=== PATIENT | male | born 1990 | race Hispanic/Latino ===

== ENCOUNTER 2020-02-01 15:16 | Inpatient (IN) | payer BC, OTHER ==
[~2020-02-01] VITALS: Ht 180.3 cm; Wt 81.5 kg
[2020-02-01] MEDS ORDERED: ALBUTEROL INHALER 90MCG/INH IH ONE (15:45)
[2020-02-01] MEDS ORDERED: DEXAMETHASONE SOD PHOSPHATE 10MG/ML 1ML VIAL ONE (15:46)
[2020-02-01] MEDS ORDERED: CEFTRIAXONE SODIUM 1 GM ONE (15:46)
[2020-02-01] MEDS ORDERED: AZITHROMYCIN 250 MG TABLET PO ONE (15:46)
[2020-02-01] MEDS ORDERED: ACETAMINOPHEN-CODEINE 300/30MG TAB ONE (15:47)
[2020-02-01] MEDS ORDERED: SODIUM CHLORIDE 0.9% 100 ML IV ONE (15:47)
[2020-02-01 15:51] LABS: LYMPHOCYTES % (AUTO) 12.9 % (21.0-51.0); MEAN CORPUSCULAR HEMOGLOBIN 31.5 pg (27.0-33.0); MEAN CORPUSCULAR VOLUME 90.1 fL (79-99); NEUTROPHILS % (AUTO) 77.7 % (40.0-77.0); PLATELET COUNT (AUTO) 146 K/uL (130-400); RED BLOOD CELL COUNT(AUTO) 4.44 MIL/uL (4.50-6.20); WHITE BLOOD COUNT (AUTO) 5.7 K/uL (4.8-10.8)
[2020-02-01 15:56] LABS: ABG HCO3 25.5 mmol/L (21.0-28.0); ABG OXYGEN SATURATION 96.1 % (95.0-99.0); ABG PCO2 37 mmHg (35-48)
[2020-02-01 16:06] LABS: CREATININE 1.4 mg/dL (0.5-1.5); INR 0.99 (0.85-1.15); PARTIAL THROMBOPLASTIN TIME 31.5 SEC (26.3-35.5); POTASSIUM 3.8 mmol/L (3.5-5.1); PROTHROMBIN TIME 10.7 SEC (9.6-11.6)
[2020-02-01] MEDS ORDERED: LORAZEPAM 2 MG/ML 1 ML VIAL ONE (16:09)
[2020-02-01 16:10] LABS: ALBUMIN 3.5 g/dL (3.5-5.0); BILIRUBIN,TOTAL 0.9 mg/dL (0.2-1.0); TOTAL PROTEIN, SERUM 7.3 g/dL (6.0-8.3)
[2020-02-01] MEDS ORDERED: DOXYCYCLINE 100MG+NS 250ML IV SCH (16:45)
[2020-02-01] MEDS ORDERED: ONDANSETRON HCL 4 MG/2 ML VIAL IV PRN (16:45)
[2020-02-01] MEDS: DEXAMETHASONE SOD PHOSPHATE 4 MG/ML 1ML VIAL IVP SCH (16:45)
[2020-02-01] MEDS ORDERED: MAG HYDROX/AL HYDROX/SIMETH ES 30 ML SUSP UDCUP PO PRN (16:45)
[2020-02-01] MEDS ORDERED: ACETAMINOPHEN 325 MG TAB PO PRN ×2 (16:45)
[2020-02-01] MEDS ORDERED: ERGOCALCIFEROL (VITAMIN D2) 50,000 UNIT CAPSULE PO ONE (16:45)
[2020-02-01 16:46] LABS: RAPID GROUP A STREP NEGATIVE (NEGATIVE)
[2020-02-01] MEDS ORDERED: DOXYCYCLINE 100MG+NS 250ML 250 ML IV ONE (17:55)
[2020-02-01] MEDS ORDERED: ERGOCALCIFEROL (VITAMIN D2) 50,000 UNIT CAPSULE ONE (17:55)
[2020-02-01] MEDS ORDERED: PHARMACY COMMUNICATION MISC SCH (18:30)
[2020-02-01] MEDS ORDERED: FAMOTIDINE 20MG TAB 20 MG TAB ONE (20:31)
[2020-02-01] MEDS ORDERED: ASPIRIN 325 MG TABLET ONE (20:31)
[2020-02-01] MEDS ORDERED: ACETYLCYSTEINE 600 MG CAPSULE ONE (20:31)
[2020-02-01] MEDS ORDERED: BENZONATATE 100 MG CAPSULE PO ONE (20:31)
[2020-02-01] MEDS: BENZONATATE 100 MG CAPSULE PO SCH (21:00)
[2020-02-01] MEDS: DOXYCYCLINE 100MG+NS 250ML 250 ML IV SCH (21:00)
[2020-02-01] MEDS: ACETYLCYSTEINE 600 MG CAPSULE PO SCH (21:00)
[2020-02-01] MEDS: FAMOTIDINE 20MG TAB 20 MG TAB PO SCH (21:00)
[2020-02-01] MEDS ORDERED: SODIUM CHLORIDE 0.9% 250 ML IV ONE (23:45)
[2020-02-02] MEDS ORDERED: BENZONATATE 100 MG CAPSULE PO ONE ×4 (03:43→22:02)
[2020-02-02] MEDS ORDERED: CEFTRIAXONE SODIUM 1 GM ONE ×2 (03:43→16:22)
[2020-02-02] MEDS ORDERED: SODIUM CHLORIDE 0.9% 100 ML IV ONE (03:44)
[2020-02-02 04:18] LABS: HEMATOCRIT 39.6 % (42-54); LYMPHOCYTES % (AUTO) 15.5 % (21.0-51.0); MEAN CORPUSCULAR HEMOGLOBIN 31.9 pg (27.0-33.0); MEAN CORPUSCULAR HGB CONC 34.8 g/dL (32.0-36.0); MEAN CORPUSCULAR VOLUME 91.7 fL (79-99); MONOCYTES % (AUTO) 7.9 % (3.0-13.0); NEUTROPHILS % (AUTO) 76.3 % (40.0-77.0); PLATELET COUNT (AUTO) 161 K/uL (130-400); RED BLOOD CELL COUNT(AUTO) 4.32 MIL/uL (4.50-6.20); RED CELL DISTRIBUTION WIDTH 11.3 % (11.0-15.5); WHITE BLOOD COUNT (AUTO) 3.8 K/uL (4.8-10.8)
[2020-02-02 04:43] LABS: ALBUMIN 3.4 g/dL (3.5-5.0); BILIRUBIN,TOTAL 0.7 mg/dL (0.2-1.0); CREATININE 1.3 mg/dL (0.5-1.5); CRP QUANTITATIVE 118.3 mg/L (0.00-9.0); POTASSIUM 4.6 mmol/L (3.5-5.1); TOTAL PROTEIN, SERUM 8.3 g/dL (6.0-8.3)
[2020-02-02] MEDS ORDERED: DOXYCYCLINE 100MG+NS 250ML 250 ML IV ONE ×3 (06:44→22:02)
[2020-02-02] MEDS ORDERED: ASCORBIC ACID 500 MG TAB ONE (08:52)
[2020-02-02] MEDS ORDERED: ACETYLCYSTEINE 600 MG CAPSULE ONE ×2 (08:52→22:01)
[2020-02-02] MEDS ORDERED: FAMOTIDINE 20MG TAB 20 MG TAB ONE ×2 (08:52→22:01)
[2020-02-02] MEDS ORDERED: ZINC SULFATE 220 CAPSULE ONE (08:53)
[2020-02-02] MEDS ORDERED: ENOXAPARIN SODIUM 40 MG/0.4 ML SYRINGE SQ ONE (08:53)
[2020-02-02] MEDS ORDERED: LOSARTAN 50 MG TABLET ONE (08:54)
[2020-02-02] MEDS: BENZONATATE 100 MG CAPSULE PO SCH ×3 (09:00→21:00)
[2020-02-02] MEDS: DOXYCYCLINE 100MG+NS 250ML 250 ML IV SCH ×2 (09:00→21:00)
[2020-02-02] MEDS: FAMOTIDINE 20MG TAB 20 MG TAB PO SCH ×2 (09:00→21:00)
[2020-02-02] MEDS: ZINC SULFATE 220 CAPSULE PO SCH (09:00)
[2020-02-02] MEDS: LOSARTAN 50 MG TABLET PO SCH (09:00)
[2020-02-02] MEDS: ASCORBIC ACID 500 MG TAB PO SCH (09:00)
[2020-02-02] MEDS: ACETYLCYSTEINE 600 MG CAPSULE PO SCH ×2 (09:00→21:00)
[2020-02-02] MEDS: ENOXAPARIN SODIUM 40 MG/0.4 ML SYRINGE SQ SCH (09:00)
[2020-02-02] MEDS ORDERED: REMDESIVIR (EUA) 520 200 MG in SODIUM CHLORIDE 0.9% 250 ML IV ONE (16:00)
[2020-02-02] MEDS ORDERED: COMPOUND IV REFRIGERATED 1 EACH IVSOLN MISC PRN (16:00)
[2020-02-02] MEDS ORDERED: DEXAMETHASONE SOD PHOSPHATE 10MG/ML 1ML VIAL ONE (16:22)
[2020-02-02] MEDS: DEXAMETHASONE SOD PHOSPHATE 4 MG/ML 1ML VIAL IVP SCH (16:45)
[2020-02-02 17:18] LABS: APPEARANCE,URINE Clear (CLEAR); BILIRUBIN,URINE Negative (NEGATIVE); COLOR,URINE Yellow (YELLOW); GLUCOSE, URINE (UA) Negative (NEGATIVE); KETONES,URINE Negative (NEGATIVE); LEUKOCYTE ESTERASE ,URINE Negative (NEGATIVE); NITRATE,URINE Negative (NEGATIVE); OCCULT BLOOD,URINE Negative (NEGATIVE); PROTEIN,URINE Trace mg/dL (NEGATIVE)
[2020-02-02 17:39] LABS: BACTERIA,URINE None Seen /HPF (None Seen); MUCUS,URINE Few LPF (None Seen); RBC,URINE 0-1 /HPF (0-1); SQUAMOUS EPITHELIAL CELL,UR 0-2 /HPF (0-2); WBC,URINE 0-1 /HPF (0-1)
[2020-02-02] MEDS ORDERED: IOHEXOL 350 MG/ML 100ML INFUS..BTL IV ONE (18:40)
[2020-02-03 03:00] VITALS: BP 124/71
[2020-02-03 04:38] LABS: BASOPHILS % (AUTO) 0.1 % (0.0-5.0); HEMATOCRIT 38.4 % (42-54); LYMPHOCYTES % (AUTO) 5.7 % (21.0-51.0); MEAN CORPUSCULAR HEMOGLOBIN 31.4 pg (27.0-33.0); MEAN CORPUSCULAR HGB CONC 34.6 g/dL (32.0-36.0); MEAN CORPUSCULAR VOLUME 90.8 fL (79-99); MONOCYTES % (AUTO) 5.8 % (3.0-13.0); NEUTROPHILS % (AUTO) 87.9 % (40.0-77.0); PLATELET COUNT (AUTO) 198 K/uL (130-400); RED BLOOD CELL COUNT(AUTO) 4.23 MIL/uL (4.50-6.20); RED CELL DISTRIBUTION WIDTH 11.2 % (11.0-15.5); WHITE BLOOD COUNT (AUTO) 10.5 K/uL (4.8-10.8)
[2020-02-03 04:54] LABS: ALBUMIN 2.9 g/dL (3.5-5.0); BILIRUBIN,TOTAL 0.4 mg/dL (0.2-1.0); CREATININE 1.1 mg/dL (0.5-1.5); CRP QUANTITATIVE 61.7 mg/L (0.00-9.0); POTASSIUM 4.4 mmol/L (3.5-5.1); TOTAL PROTEIN, SERUM 7.2 g/dL (6.0-8.3)
[2020-02-03] MEDS: CEFTRIAXONE SODIUM 1 GM IVP SCH ×2 (05:59→14:45)
[2020-02-03] MEDS: PHARMACY COMMUNICATION MISC SCH (06:00)
[2020-02-03] MEDS: FAMOTIDINE 20MG TAB 20 MG TAB PO SCH ×2 (07:44→21:00)
[2020-02-03] MEDS: ACETYLCYSTEINE 600 MG CAPSULE PO SCH ×2 (07:44→21:01)
[2020-02-03] MEDS: DOXYCYCLINE 100MG+NS 250ML 250 ML IV SCH ×2 (07:44→21:01)
[2020-02-03] MEDS: ENOXAPARIN SODIUM 40 MG/0.4 ML SYRINGE SQ SCH (07:44)
[2020-02-03] MEDS: BENZONATATE 100 MG CAPSULE PO SCH ×3 (07:45→21:01)
[2020-02-03] MEDS: ZINC SULFATE 220 CAPSULE PO SCH (07:45)
[2020-02-03] MEDS: ASCORBIC ACID 500 MG TAB PO SCH (07:45)
[2020-02-03] MEDS: LOSARTAN 50 MG TABLET PO SCH (07:45)
[2020-02-03 08:30] VITALS: BP 122/71
[2020-02-03] MEDS ORDERED: ALBUTEROL SULFATE 0.083% 2.5 MG/3 ML INH IH PRN (08:45)
[2020-02-03 12:54] VITALS: BP 112/61
[2020-02-03] MEDS: DEXAMETHASONE SOD PHOSPHATE 4 MG/ML 1ML VIAL IVP SCH (14:44)
[2020-02-03] MEDS: REMDESIVIR (EUA) 520 100 MG in SODIUM CHLORIDE 0.9% 250 ML IV SCH (14:45)
[2020-02-03 16:30] VITALS: BP 121/86
[2020-02-03 19:00] VITALS: BP 126/72
[2020-02-03 23:00] VITALS: BP 137/91
[2020-02-04 03:00] VITALS: BP 129/78
[2020-02-04] MEDS: CEFTRIAXONE SODIUM 1 GM IVP SCH (04:13)
[2020-02-04 04:27] LABS: BASOPHILS % (AUTO) 0.1 % (0.0-5.0); HEMATOCRIT 38.4 % (42-54); LYMPHOCYTES % (AUTO) 7.5 % (21.0-51.0); MEAN CORPUSCULAR HEMOGLOBIN 31.2 pg (27.0-33.0); MEAN CORPUSCULAR HGB CONC 34.4 g/dL (32.0-36.0); MEAN CORPUSCULAR VOLUME 90.8 fL (79-99); MONOCYTES % (AUTO) 8.4 % (3.0-13.0); NEUTROPHILS % (AUTO) 83.1 % (40.0-77.0); PLATELET COUNT (AUTO) 212 K/uL (130-400); RED BLOOD CELL COUNT(AUTO) 4.23 MIL/uL (4.50-6.20); RED CELL DISTRIBUTION WIDTH 11.2 % (11.0-15.5)
[2020-02-04 04:42] LABS: ALBUMIN 2.8 g/dL (3.5-5.0); BILIRUBIN,TOTAL 0.4 mg/dL (0.2-1.0); CRP QUANTITATIVE 28.3 mg/L (0.00-9.0); POTASSIUM 3.9 mmol/L (3.5-5.1); TOTAL PROTEIN, SERUM 6.8 g/dL (6.0-8.3)
[2020-02-04] MEDS: PHARMACY COMMUNICATION MISC SCH ×3 (05:28→23:45)
[2020-02-04 07:30] VITALS: BP 118/70
[2020-02-04] MEDS: LOSARTAN 50 MG TABLET PO SCH (10:54)
[2020-02-04 12:00] VITALS: BP 112/61
[2020-02-04] MEDS ORDERED: FLUTICASONE/SALMETEROL 100MCG-50MCG/DISKUS IH PRN (14:00)
[2020-02-04] MEDS ORDERED: BENZONATATE 100 MG CAPSULE PO PRN (14:00)
[2020-02-04] MEDS: REMDESIVIR (EUA) 520 100 MG in SODIUM CHLORIDE 0.9% 250 ML IV SCH (15:43)
[2020-02-04] MEDS ORDERED: ALBUTEROL INHALER 90MCG/INH IH PRN (15:45)
[2020-02-04] MEDS: DEXAMETHASONE SOD PHOSPHATE 4 MG/ML 1ML VIAL IVP SCH (16:09)
[2020-02-04] MEDS ORDERED: THIAMINE HCL 100 MG TABLET PO SCH (16:10)
[2020-02-04 16:30] VITALS: BP 128/64
[2020-02-04] MEDS: FLUTICASONE/VILANTEROL 1 EACH BLST.W.DEV IH SCH (17:32)
[2020-02-04 19:53] VITALS: BP 125/66
[2020-02-04] MEDS ORDERED: SUB PER P&T FOR ASTHMA OR COPD RECOMMENDATION IH SCH (21:00)
[2020-02-04] MEDS: MONTELUKAST SODIUM 10 MG TAB PO SCH (21:15)
[2020-02-04] MEDS: ENOXAPARIN SODIUM 40 MG/0.4 ML SYRINGE SQ SCH (21:15)
[2020-02-04] MEDS: CLONAZEPAM 1 MG TABLET PO SCH (21:16)
[2020-02-04 23:16] VITALS: BP 112/62
[2020-02-05 03:20] VITALS: BP 128/71
[2020-02-05 04:05] LABS: BASOPHILS % (AUTO) 0.2 % (0.0-5.0); HEMATOCRIT 41.3 % (42-54); LYMPHOCYTES % (AUTO) 12.4 % (21.0-51.0); MEAN CORPUSCULAR HEMOGLOBIN 31.3 pg (27.0-33.0); MEAN CORPUSCULAR HGB CONC 34.1 g/dL (32.0-36.0); MEAN CORPUSCULAR VOLUME 91.6 fL (79-99); MONOCYTES % (AUTO) 7.4 % (3.0-13.0); NEUTROPHILS % (AUTO) 79.2 % (40.0-77.0); PLATELET COUNT (AUTO) 241 K/uL (130-400); RED BLOOD CELL COUNT(AUTO) 4.51 MIL/uL (4.50-6.20); RED CELL DISTRIBUTION WIDTH 11.1 % (11.0-15.5); WHITE BLOOD COUNT (AUTO) 6.2 K/uL (4.8-10.8)
[2020-02-05 04:23] LABS: ALANINE AMINOTRANSFERASE 134 U/L (12-78); ALBUMIN 2.9 g/dL (3.5-5.0); ASPARTATE AMINOTRANSFERASE 55 U/L (10-37); BILIRUBIN,TOTAL 0.5 mg/dL (0.2-1.0); CARBON DIOXIDE 29 mmol/L (21-32); CHLORIDE 104 mmol/L (101-111); GLOMERULAR FILTR. RATE CALC 93 mL/min (>60); GLUCOSE,RANDOM 114 mg/dL (70-105); LACTATE DEHYDROGENASE 178 U/L (81-234); POTASSIUM 4.1 mmol/L (3.5-5.1); SODIUM SERUM 141 mmol/L (136-145); TOTAL PROTEIN, SERUM 6.8 g/dL (6.0-8.3); UREA NITROGEN, BLOOD 28 mg/dL (7-18)
[2020-02-05] MEDS: PHARMACY COMMUNICATION MISC SCH ×3 (06:00→15:41)
[2020-02-05 08:00] VITALS: BP 120/90
[2020-02-05] MEDS: FAMOTIDINE 20MG TAB 20 MG TAB PO SCH (08:30)
[2020-02-05] MEDS: ENOXAPARIN SODIUM 40 MG/0.4 ML SYRINGE SQ SCH ×2 (08:30→21:13)
[2020-02-05] MEDS: FOLIC ACID 1 MG TABLET PO SCH (08:30)
[2020-02-05] MEDS: LOSARTAN 50 MG TABLET PO SCH (08:31)
[2020-02-05] MEDS: NICOTINE 21 MG/ 24 HR PATCH TD SCH (08:31)
[2020-02-05] MEDS: DEXAMETHASONE SOD PHOSPHATE 4 MG/ML 1ML VIAL IVP SCH (08:31)
[2020-02-05] MEDS: CLONAZEPAM 1 MG TABLET PO SCH ×2 (09:00→21:13)
[2020-02-05] MEDS: FLUTICASONE/VILANTEROL 1 EACH BLST.W.DEV IH SCH (09:29)
[2020-02-05] MEDS: MULTIVITAMIN TABLET PO SCH (11:51)
[2020-02-05 11:52] VITALS: BP 121/63
[2020-02-05] MEDS: REMDESIVIR (EUA) 520 100 MG in SODIUM CHLORIDE 0.9% 250 ML IV SCH (15:37)
[2020-02-05 16:00] VITALS: BP 121/74
[2020-02-05] MEDS ORDERED: ACETAMINOPHEN 325 MG TAB PO PRN (17:45)
[2020-02-05] MEDS ORDERED: ACETAMINOPHEN 325 MG TAB ONE (17:47)
[2020-02-05 18:00] VITALS: BP 144/83
[2020-02-05 20:00] VITALS: BP 133/78
[2020-02-05] MEDS: MONTELUKAST SODIUM 10 MG TAB PO SCH (21:13)
[2020-02-06] VITALS (7 sets, daily range): BP systolic 106–122; BP diastolic 54–76
[2020-02-06 05:02] LABS: BASOPHILS % (AUTO) 0.3 % (0.0-5.0); EOSINOPHILS % (AUTO) 0.1 % (0.0-8.0); HEMATOCRIT 39.9 % (42-54); LYMPHOCYTES % (AUTO) 19.6 % (21.0-51.0); MEAN CORPUSCULAR HEMOGLOBIN 32.1 pg (27.0-33.0); MEAN CORPUSCULAR HGB CONC 35.6 g/dL (32.0-36.0); MEAN CORPUSCULAR VOLUME 90.3 fL (79-99); MONOCYTES % (AUTO) 9.4 % (3.0-13.0); NEUTROPHILS % (AUTO) 68.5 % (40.0-77.0); PLATELET COUNT (AUTO) 278 K/uL (130-400); RED BLOOD CELL COUNT(AUTO) 4.42 MIL/uL (4.50-6.20); WHITE BLOOD COUNT (AUTO) 6.7 K/uL (4.8-10.8)
[2020-02-06 05:22] LABS: ALANINE AMINOTRANSFERASE 157 U/L (12-78); ALBUMIN 3.1 g/dL (3.5-5.0); ASPARTATE AMINOTRANSFERASE 48 U/L (10-37); BILIRUBIN,TOTAL 0.6 mg/dL (0.2-1.0); CARBON DIOXIDE 32 mmol/L (21-32); CHLORIDE 105 mmol/L (101-111); CREATININE 1.2 mg/dL (0.5-1.5); GLOMERULAR FILTR. RATE CALC 75 mL/min (>60); GLUCOSE,RANDOM 96 mg/dL (70-105); LACTATE DEHYDROGENASE 166 U/L (81-234); POTASSIUM 4.1 mmol/L (3.5-5.1); SODIUM SERUM 141 mmol/L (136-145); TOTAL PROTEIN, SERUM 6.4 g/dL (6.0-8.3); UREA NITROGEN, BLOOD 26 mg/dL (7-18)
[2020-02-06 05:23] LABS: CRP QUANTITATIVE < 2.00 mg/L (0.00-9.0)
[2020-02-06] MEDS: DEXAMETHASONE SOD PHOSPHATE 4 MG/ML 1ML VIAL IVP SCH (07:42)
[2020-02-06] MEDS: LOSARTAN 50 MG TABLET PO SCH (07:42)
[2020-02-06] MEDS: FOLIC ACID 1 MG TABLET PO SCH (07:43)
[2020-02-06] MEDS: MULTIVITAMIN TABLET PO SCH (07:43)
[2020-02-06] MEDS: PHARMACY COMMUNICATION MISC SCH (07:45)
[2020-02-06] MEDS: FLUTICASONE/VILANTEROL 1 EACH BLST.W.DEV IH SCH (08:19)
[2020-02-06] MEDS: FAMOTIDINE 20MG TAB 20 MG TAB PO SCH (08:20)
[2020-02-06] MEDS: CLONAZEPAM 1 MG TABLET PO SCH ×2 (08:20→20:19)
[2020-02-06] MEDS: ENOXAPARIN SODIUM 40 MG/0.4 ML SYRINGE SQ SCH ×2 (08:21→20:19)
[2020-02-06] MEDS: NICOTINE 21 MG/ 24 HR PATCH TD SCH (08:53)
[2020-02-06] MEDS: REMDESIVIR (EUA) 520 100 MG in SODIUM CHLORIDE 0.9% 250 ML IV SCH (15:00)
[2020-02-06] MEDS: MONTELUKAST SODIUM 10 MG TAB PO SCH (20:19)
[2020-02-07 03:11] VITALS: BP 100/51
[2020-02-07 05:57] LABS: BASOPHILS % (AUTO) 0.4 % (0.0-5.0); EOSINOPHILS % (AUTO) 0.3 % (0.0-8.0); HEMATOCRIT 39.9 % (42-54); LYMPHOCYTES % (AUTO) 20.1 % (21.0-51.0); MEAN CORPUSCULAR HEMOGLOBIN 31.5 pg (27.0-33.0); MEAN CORPUSCULAR HGB CONC 34.8 g/dL (32.0-36.0); MEAN CORPUSCULAR VOLUME 90.5 fL (79-99); MONOCYTES % (AUTO) 9.6 % (3.0-13.0); NEUTROPHILS % (AUTO) 65.1 % (40.0-77.0); PLATELET COUNT (AUTO) 275 K/uL (130-400); RED BLOOD CELL COUNT(AUTO) 4.41 MIL/uL (4.50-6.20); RED CELL DISTRIBUTION WIDTH 11.2 % (11.0-15.5); WHITE BLOOD COUNT (AUTO) 7.2 K/uL (4.8-10.8)
[2020-02-07 06:23] LABS: CARBON DIOXIDE 29 mmol/L (21-32); CHLORIDE 105 mmol/L (101-111); CREATININE 1.1 mg/dL (0.5-1.5); GLOMERULAR FILTR. RATE CALC 83 mL/min (>60); GLUCOSE,RANDOM 90 mg/dL (70-105); LACTATE DEHYDROGENASE 165 U/L (81-234); POTASSIUM 3.6 mmol/L (3.5-5.1); SODIUM SERUM 139 mmol/L (136-145); UREA NITROGEN, BLOOD 28 mg/dL (7-18)
[2020-02-07 06:38] LABS: CRP QUANTITATIVE < 2.00 mg/L (0.00-9.0)
[2020-02-07 07:55] VITALS: BP 109/56
[2020-02-07] MEDS: NICOTINE 21 MG/ 24 HR PATCH TD SCH (08:03)
[2020-02-07] MEDS: LOSARTAN 50 MG TABLET PO SCH (08:05)
[2020-02-07] MEDS: FOLIC ACID 1 MG TABLET PO SCH (08:05)
[2020-02-07] MEDS: ENOXAPARIN SODIUM 40 MG/0.4 ML SYRINGE SQ SCH (08:05)
[2020-02-07] MEDS: MULTIVITAMIN TABLET PO SCH (08:05)
[2020-02-07] MEDS: DEXAMETHASONE SOD PHOSPHATE 4 MG/ML 1ML VIAL IVP SCH (08:07)
[2020-02-07] MEDS: FLUTICASONE/VILANTEROL 1 EACH BLST.W.DEV IH SCH (08:10)
[2020-02-07] MEDS: FAMOTIDINE 20MG TAB 20 MG TAB PO SCH (08:13)
[2020-02-07] MEDS: CLONAZEPAM 1 MG TABLET PO SCH (09:00)
[2020-02-07 12:09] VITALS: BP 115/63
[2020-02-07] MEDS ORDERED: APIX2.5T PO (12:17)
[2020-02-07] MEDS ORDERED: DEXA6TAB PO (12:17)
[2020-02-07] MEDS ORDERED: BUDE10.2 IH (12:17)
[2020-02-07] MEDS ORDERED: MONT10TA21 PO (12:17)
[2020-02-07] MEDS ORDERED: ALBU90AE IH (12:17)
[2020-02-07] MEDS ORDERED: LOSA25TA41 PO (12:17)
== END 2020-02-07 14:11 | disposition home or self-care (01) | DRG 177 ==
LOC: EDH 15:16 → EDHIP 15:17 → 2AH 02-03 00:35
PROVIDERS: ADMIT Hospitalist; ATTEND Hospitalist
PROC: XW13325 Transfusion of Convalescent Plasma (Nonautologous) into Peripheral Vein, Percutaneous Approach, New Technology Group 5 (ICD-10-PCS; 2020-02-01)
PROC: XW033E5 Introduction of Remdesivir Anti-infective into Peripheral Vein, Percutaneous Approach, New Technology Group 5 (ICD-10-PCS; principal; 2020-02-02)
DX: U07.1 COVID-19 (principal); J96.01 Acute respiratory failure with hypoxia; J12.89 Other viral pneumonia; J98.11 Atelectasis; K21.9 Gastro-esophageal reflux disease without esophagitis; F17.210 Nicotine dependence, cigarettes, uncomplicated; Y90.9 Presence of alcohol in blood, level not specified; J45.40 Moderate persistent asthma, uncomplicated; F10.20 Alcohol dependence, uncomplicated; I10 Essential (primary) hypertension; Z79.899 Other long term (current) drug therapy
CPT/HCPCS: 36415; 36600; 71045; 71275; 80048; 80053; 81001; 82550; 82728; 82803; 83605; 83615; 84145; 84484; 85025; 85378; 85610; 85730; 86140; 86592; 86701; 86706; 86900; 86901; 86927; 87040; 87390; 87426; 87520; 87804; 87880; 93005; G0378; J0696; J1100; J1650; J2060; J3490; J7050; Q9967; U0003

== ENCOUNTER 2021-02-20 03:02 | Emergency (ER) | payer OTHER ==
[~2021-02-20] VITALS: Ht 180.3 cm; Wt 86.2 kg
[~2021-02-20 03:02] MED LIST: ALBU90AE IH; APIX2.5T PO; BUDE10.2 IH; DEXA6TAB PO; LOSA25TA41 PO; MONT10TA21 PO
[2021-02-20 03:57] LABS: ALBUMIN 4.1 g/dL (3.5-5.0); BILIRUBIN,TOTAL 0.3 mg/dL (0.2-1.0); CREATININE 1.2 mg/dL (0.5-1.5); POTASSIUM 3.4 mmol/L (3.5-5.1); TOTAL PROTEIN, SERUM 7.6 g/dL (6.0-8.3)
[2021-02-20 03:59] LABS: BASOPHILS % (AUTO) 0.2 % (0.0-5.0); EOSINOPHILS % (AUTO) 1.9 % (0.0-8.0); HEMATOCRIT 38.6 % (42-54); MEAN CORPUSCULAR HEMOGLOBIN 32.6 pg (27.0-33.0); MEAN CORPUSCULAR HGB CONC 35.2 g/dL (32.0-36.0); MEAN CORPUSCULAR VOLUME 92.6 fL (79-99); MONOCYTES % (AUTO) 8.6 % (3.0-13.0); NEUTROPHILS % (AUTO) 67.9 % (40.0-77.0); PLATELET COUNT (AUTO) 207 K/uL (130-400); RED BLOOD CELL COUNT(AUTO) 4.17 MIL/uL (4.50-6.20); RED CELL DISTRIBUTION WIDTH 12.1 % (11.0-15.5); WHITE BLOOD COUNT (AUTO) 5.3 K/uL (4.8-10.8)
[2021-02-20 04:08] LABS: APPEARANCE,URINE Clear (CLEAR); BILIRUBIN,URINE Negative (NEGATIVE); COLOR,URINE Yellow (YELLOW); GLUCOSE, URINE (UA) Negative (NEGATIVE); KETONES,URINE Negative (NEGATIVE); LEUKOCYTE ESTERASE ,URINE Negative (NEGATIVE); NITRATE,URINE Negative (NEGATIVE); OCCULT BLOOD,URINE Negative (NEGATIVE); PROTEIN,URINE Negative (NEGATIVE); UROBILINOGEN,URINE 0.2 mg/dL (0.2-1.0)
[2021-02-20] MEDS ORDERED: ONDANSETRON 4MG INJ ONE (04:28)
[2021-02-20 04:40] LABS: BACTERIA,URINE Rare /HPF (None Seen); RBC,URINE None Seen /HPF (0-1); WBC,URINE 0-1 /HPF (0-1)
[2021-02-20] MEDS ORDERED: 0.9%NACL 1000ML 1,000 ML IV ONE ×2 (05:00)
[2021-02-20] MEDS ORDERED: CYCL-309 PO (06:13)
[2021-02-20] MEDS ORDERED: MELO7.5T12 PO (06:13)
[2021-02-20] MEDS ORDERED: ONDA4TAB10 PO (06:13)
[2021-02-20 07:04] VITALS: BP 138/88
== END 2021-02-20 07:06 | disposition home or self-care (01) ==
LOC: EDH 03:02
DX: F45.8 Other somatoform disorders (principal); F43.9 Reaction to severe stress, unspecified; M62.838 Other muscle spasm; M54.9 Dorsalgia, unspecified; E78.00 Pure hypercholesterolemia, unspecified; I10 Essential (primary) hypertension; J45.909 Unspecified asthma, uncomplicated; Z79.01 Long term (current) use of anticoagulants; Z79.1 Long term (current) use of non-steroidal anti-inflammatories (NSAID); Z79.51 Long term (current) use of inhaled steroids; Z79.52 Long term (current) use of systemic steroids; Z79.899 Other long term (current) drug therapy
CPT/HCPCS: 36415; 80053; 81001; 84484; 85025; 93005; 96374; 99284; J2405